=== PATIENT | female | born 1950 | race Caucasian/White ===

== ENCOUNTER → 2017-02-03 | Outpatient (CLI) | payer MEDICARE ==
[~2017-02-03] MED LIST: ISORDIL TAB 3030 MG PO; LOSARTAN POTASS50 MG PO; NEXIUM40 MG PO; ZETIA 10 MG TAB10 MG PO
== END ==
LOC: LAB 11:02
PROVIDERS: Internal Medicine Interventional Cardiology
DX: E78.5 Hyperlipidemia, unspecified (principal)
CPT/HCPCS: 36415; 80053; 80061

== ENCOUNTER 2017-02-13 23:30 | Observation (INO) | payer MEDICARE ==
[~2017-02-13] VITALS: Ht 167.6 cm; Wt 83.9 kg
[2017-02-14] LABS: HEMOGLOBIN 14.9 gm/dl (12.3-15.3); RED BLOOD COUNT 4.77 M/UL (4.00-5.10); WHITE BLOOD COUNT 11.3 K/UL (4.5-11.0)
[2017-02-14] MEDS ORDERED: ISORDIL TAB 3030 MG PO (13:05)
[2017-02-14] MEDS ORDERED: LOSARTAN POTASS50 MG PO (13:06)
[2017-02-14] MEDS ORDERED: ZETIA 10 MG TAB10 MG PO (13:06)
[2017-02-14] MEDS ORDERED: NEXIUM40 MG PO (13:07)
== END 2017-02-14 17:53 | disposition home or self-care (01) ==
LOC: ER1 23:30 → MED SURG 4 02-14 01:55 → ZEROF 02-14 01:55 → MED SURG 4 02-14 01:55
PROVIDERS: Student in an Organized Health Care Education/Training Program; ADMIT Internal Medicine
DX: R07.9 Chest pain, unspecified (principal); I07.1 Rheumatic tricuspid insufficiency; I25.10 Atherosclerotic heart disease of native coronary artery without angina pectoris; I10 Essential (primary) hypertension; E78.5 Hyperlipidemia, unspecified; K21.9 Gastro-esophageal reflux disease without esophagitis; Z95.1 Presence of aortocoronary bypass graft
CPT/HCPCS: ECHO; 36415; 71010; 78452; 80053; 80061; 82550; 82553; 83036; 83874; 84443; 84484; 85025; 85379; 93005; 93017; 93306; 99285; A9502; G0378; J7030